=== PATIENT | female | born 2000 | race Caucasian/White ===

== ENCOUNTER 2020-03-01 11:21 | Outpatient (REF) | payer OTHER, SELFPAY | END 2020-03-01 11:22 | disposition home or self-care (01) | LOC: HO.LAB 11:21 | PROVIDERS: Visit Provider Internal Medicine | DX: Z20.828 Contact with and (suspected) exposure to other viral communicable diseases (principal) | CPT/HCPCS: C9803; U0003 ==

== ENCOUNTER 2021-03-02 16:26 | Emergency (ER) | payer OTHER, SELFPAY ==
--- NOTE | ~2021-03-02 | XR_ITS ---
EXAMINATION: XR KNEE, RIGHT CLINICAL INFORMATION: Injury COMPARISON: None TECHNIQUE: Two views of the right knee. FINDINGS: Hardware in the distal femur. No evidence of hardware failure. No acute fracture or dislocation. No significant effusion XR/XR knee RT 2V IMPRESSION: No acute bony finding
[2021-03-02 16:53] VITALS: BP 124/67; PULSE 97; RESP 18; TEMP 36.1; O2SAT 97; BMI 23.8
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
== END 2021-03-02 20:35 | disposition home or self-care (01) ==
PROVIDERS: Emergency Provider Internal Medicine
DX: S39.012A Strain of muscle, fascia and tendon of lower back, initial encounter (principal); S16.1XXA Strain of muscle, fascia and tendon at neck level, initial encounter; M25.561 Pain in right knee; V89.2XXA Person injured in unspecified motor-vehicle accident, traffic, initial encounter; Y93.9 Activity, unspecified; Y92.410 Unspecified street and highway as the place of occurrence of the external cause; Y99.9 Unspecified external cause status
CPT/HCPCS: 73560; 99283

== ENCOUNTER 2021-03-03 13:19 | Outpatient (REF) | payer OTHER, SELFPAY ==
[2021-03-03 14:02] LABS: COVID-19 Test Positive (Negative)
== END 2021-03-03 13:20 | disposition home or self-care (01) ==
LOC: HO.LAB 13:19
PROVIDERS: Visit Provider Internal Medicine
DX: Z20.822 Contact with and (suspected) exposure to COVID-19 (principal)
CPT/HCPCS: 36415; 87635; C9803

== ENCOUNTER 2023-09-19 19:34 | Emergency (ER) | payer SELFPAY ==
[2023-09-19 19:59] VITALS: BP 113/70; PULSE 99; RESP 18; TEMP 36.7; O2SAT 98; BMI 27.4
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
[2023-09-19 22:35] VITALS: BP 113/70; PULSE 92; RESP 16; TEMP 36.8; O2SAT 98
--- OUTSIDE RECORDS SUMMARY | 2023-09-20 08:37 | XMS_ITS | Continuity of Care Document ---
Author Organization [facility] ter Address [address] [place] [id number]- Care Team Providers Care Wheelabrator Operator Name Role Phone Tricia Slade MD Primary Care Physician [phone] Encounter [facility] Date(s): 02/24/21 - 05/06/[address] [id number] Attending Physician: Татьяна Lu MD Admitting Physician: Татьяна Lu MD Allergies, Adverse Reactions, Alerts No Known Allergies Immunizations Not Given Vaccine Date Status Refusal Reason influenza virus vaccine, inactivated 03/30/19 Not Given Patient Refuses Medications Colace sodium 100 mg oral capsule 200 mg, 2, capsule, By Mouth, 2 times a day, Refills 0, Maintenance, 03/31/19 16:25:00 EST Start Date: 03/31/19 Status: Ordered Enoxaparin 0.4 mL = 40 mg, Subcutaneous Injection, Daily, 0 Refills, Maintenance, 03/31/19 16:25:00 EST, Injection Start Date: 03/31/19 Status: Ordered ibuprofen 600 mg oral tablet 600 mg, 1, tablet, By Mouth, 3 times a day, PRN, Refills 0, Maintenance, Pain , Mild, 03/31/19 16:25:00 EST Start Date: 03/31/19 Status: Ordered Milk of Magnesia Liquid 30 mL, By Mouth, 2 times a day, PRN Constipation, 0 Refills, Maintenance, 03/31/19 16:25:00 EST, Suspension Start Date: 03/31/19 Status: Ordered Multivitamin Tablet 1 tablet, By Mouth, Daily, 0 Refills, Maintenance, 03/31/19 16:25:00 EST, Tablet Start Date: 03/31/19 Status: Ordered oxyCODONE 5 mg oral tablet 10 mg, 2, tablet, By Mouth, Every 3 hours, PRN, Refills 0, Tot. Refills 0, Maintenance, Pain , Severe, 03/31/19 16:25:00 EST, Partial fill upon patient request Start Date: 03/31/19 Status: Ordered Tylenol 325 mg oral tablet 975 mg, 3, tablet, By Mouth, 3 times a day, Refills 0, Maintenance, 03/31/19 16:24:00 EST Start Date: 03/31/19 Status: Ordered
--- OUTSIDE RECORDS SUMMARY | 2023-09-20 08:37 | XMS_ITS | Continuity of Care Document ---
Author Organization [facility] ter Address [address] [place] [id number]- Care Team Providers Care Chief Service Dispatcher Name Role Phone Tricia Slade MD Primary Care Physician En[place] [facility] Date(s): 05/27/21 - 05/27/[address] [address] Discharge Disposition: A-D/C Home Attending Physician: Татьяна Lu MD Admitting Physician: Татьяна Lu MD Referring Physician: Татьяна Lu MD Allergies, Adverse Reactions, Alerts No Known Allergies Immunizations Not Given Vaccine Date Status Refusal Reason influenza virus vaccine, inactivated 03/30/19 Not Given Patient Refuses Medications FENTanyl Inj 25 mcg, Injection, IV Push Slowly, Every 5 minutes for 8 doses/times, in PACU ONLY, Hold for: RR less than 8 or over-sedation, PRN for Pain , Moderate, Repeat until Pain Score is less than or equal to 2, Routine, 05/27/21 8:56:00 EST, Stop date Limite... Start Date: 05/27/21 Stop Date: 05/27/21 Status: Discontinued oxyCODONE 5 mg oral tablet 5 mg, 1, tablet, By Mouth, Every 6 hours, PRN, # 18 tablet, Refills 0, Tot. Refills 0, Acute 06/01/21 9:37:00 EST, for pain, 05/27/21 9:36:00 EST, Route to Pharmacy Electronically, [facility], Partial fill upon patient request if the pre... Start Date: 05/27/21 Stop Date: 06/01/21 Status: Ordered Vital Signs Most recent to oldest [Reference Range]: 1 2 3 Height 157.48 cm (05/27/21 6:56 AM) 157.48 cm (05/17/21 9:13 AM) Weight 60.9 kg (05/27/21 6:56 AM) 54.55 kg (05/17/21 9:13 AM) Oxygen Saturation [94-100 %] 100 % (05/27/21 10:00 AM) 99 % (05/27/21 9:45 AM) 100 % (05/27/21 9:30 AM) Pulse Rate [55-90 bpm] 81 bpm (05/27/21 6:56 AM) Body Mass Index [18.5-24.99] 24.56 (05/27/21 6:56 AM) 22 (05/17/21 9:13 AM) Blood Pressure [90-138/55-84 mm Hg] 121/60mm Hg (05/27/21 10:00 AM) 111/59mm Hg (05/27/21 9:45 AM) 106/65mm Hg (05/27/21 9:30 AM) Respiratory Rate [16-30 br/min] 20 br/min (05/27/21 10:06 AM) 20 br/min (05/27/21 10:00 AM) 19 br/min (05/27/21 9:48 AM) Temperature [96.8-100.4 DegF] 100.0 DegF (05/27/21 10:00 AM) 97.6 DegF (05/27/21 8:45 AM) 98.3 DegF (05/27/21 6:56 AM) Mode of Delivery (Oxygen) Room air (05/27/21 10:00 AM) Room air (05/27/21 8:45 AM) Room air (05/27/21 6:56 AM) Blood pressure sites Arm, right (05/27/21 6:56 AM) Temperature Route Temporal (05/27/21 10:00 AM) Temporal (05/27/21 8:45 AM) Temporal (05/27/21 6:56 AM) Dry Weight 60.9 kg (05/27/21 6:56 AM) 54.55 kg (05/17/21 9:13 AM) Weight Obtained Via Standing scale (05/27/21 6:56 AM) Patient/family stated (05/17/21 9:13 AM) Dry Weight Obtained Via Standing scale (05/27/21 6:56 AM) Patient/family stated (05/17/21 9:13 AM)
== END 2023-09-19 22:37 | disposition home or self-care (01) ==
PROVIDERS: Emergency Provider Emergency Medicine
DX: L55.9 Sunburn, unspecified (principal)
CPT/HCPCS: 99282; 99283

== ENCOUNTER 2024-05-26 15:06 | Emergency (ER) | payer OTHER, SELFPAY ==
[2024-05-26 15:11] VITALS: BP 136/106; PULSE 84; RESP 16; TEMP 36.6; O2SAT 97; BMI 24.7
--- NOTE | 2024-05-26 15:11 | ED_ITS ---
HPI - General Adult General Chief complaint: Psychiatric Symptoms Stated complaint: checking in Crisis Time Seen by Provider: 05/26/24 15:45 Source: patient Mode of arrival: ambulatory Limitations: no limitations History of Present Illness HPI narrative: 23-year-old female presents emergency department complaining of SI in the setting of alcohol abuse she denies any falls or injuries she was seen here been hospitalized in the past she does have a plan to kill herself but will not elaborate she states she has had thoughts she did recently lose her father and she lost her mother several years ago. Related Data Allergies Allergy/AdvReac Type Severity Reaction Status Date / Time No Known Allergies Allergy Verified 05/26/24 15:16 [No Known Allergies*] Review of Systems 2 Review of Systems: Review of systems: General: Patient denies any fever chills recent illness or falls Musculoskeletal: Denies back pain or body aches or other injuries HEENT: denies headache, runny nose, ear pain Respiratory: denies shortness of breath, cough Cardiovascular: no chest pain or palpitations : denies dysuria, frequency Abdomen: no nausea vomiting denies abdominal pain Extremities: no swelling, no pain Skin: no diaphoresis Yes all other systems are reviewed and are negative PMFSH Social History Social History Alcohol intake: current Alcohol intake frequency: 3 or more drinks per day Smoked in Last 30 Days: Yes Use of substances other than those prescribed or required for medical reasons: No Advance Directives: No Advance Directives Information Provided: Yes Physical Exam ED Vital Signs: Vital Signs - 24 hr 05/26/24 15:11 05/26/24 16:33 05/26/24 18:12 Temperature 97.9 F 99.5 F Pulse Rate 84 70 Respiratory Rate 16 18 16 Blood Pressure 136/106 H 110/66 Pulse Oximetry 97 98 Oxygen Delivery Method Room Air Room Air 05/27/24 06:25 Temperature 97.6 F Pulse Rate 55 Respiratory Rate 16 Blood Pressure 107/48 L Pulse Oximetry 98 Oxygen Delivery Method Room Air BMI result Body Mass Index 24.7 General: Well-appearing well-nourished in no signs of distress HEENT: Normocephalic atraumatic Neck: No signs of JVD, no masses no tenderness or lymphadenopathy Cardiovascular: Regular rate and rhythm Respiratory: Clear to auscultation bilaterally Abdomen: Soft nontender no masses rectal exam performed guiac negative quality assurance engineer confirmed. Extremities: Normal pedal pulses no signs of edema Skin: Dry warm no rashes Back: No tenderness full ROM Course Course Course Narrative: RME performed by Nataliya Rodriguez PA-C. Patient is a 23 year old assigned female at presenting to the emergency department with depression, suicidal ideation, and alcohol abuse. Patient states she has been drinking a sleeve of nips per day and has been more depressed causing suicidal ideation. Detailed physical exam and review of systems are deferred to the boat finisher. green hide inspector made aware of patient. Reevaluation(s) Reevaluation #1: Seen by and they will send for respite. She will stay overnight for placement in the morning. Time: 18:39 Reevaluation #2: No issues overnight vital signs stable plan is respite today Time: 07:05 Reevaluation #3: Patient was accepted to respite we will discharge her Medical Decision Making Medical Decision Making [facility] Narrative: I will send those the patient denies ever being hospitalized like this in the past she did recently lose her father after losing mother does admit to alcohol abuse Differential Diagnosis Differential Diagnoses: The differential diagnosis associated with the presentation includes SI HI she had psychosis Consult Healthcare Provider Management of the patient was discussed with: Behavioral Health Provider Lab Data [facility] Lab Attestation statement: I reviewed the patient's lab results. She is positive for cocaine and marijuana use 05/26/24 15:20 05/26/24 15:20 Labs: Lab Results 05/26/24 05/26/24 Range/Units 15:20 15:55 WBC 12.2 H (4.8-10.8) X10*3/uL RBC 4.96 (4.20-5.50) X10*6/uL Hgb 14.7 (12.0-16.0) g/dl Hct 43.0 (37.0-47.0) % MCV 86.7 (80.0-98.0) fL MCH 29.6 (27.0-33.0) pg MCHC 34.2 (31.0-35.0) g/dl RDW 13.3 (11.0-16.0) % Plt Count 375 (160-400) X10*3/uL MPV 10.4 (9.4-12.3) fL Immature Gran % (Auto) 0.4 (0.0-0.4) % Neut % (Auto) 70.6 (45-73) % Lymph % (Auto) 20.2 (20-40) % [place] % (Auto) 6.8 (2-11) % Eos % (Auto) 1.6 (0-4) % Baso % (Auto) 0.4 (0-2) % Lymph # (Auto) 2.5 (1.2-4.9) X10*3/uL [place] # (Auto) 0.8 (0.1-1.2) X10*3/uL Eos # (Auto) 0.2 (0.0-0.4) X10*3/uL Baso # (Auto) 0.1 (0.0-0.2) X10*3/uL Abs Immat Gran (auto) 0.05 H (0.00-0.03) X10*3/uL Absolute Neuts (auto) 8.6 H (2.0-8.3) x10*3/uL Absolute Nucleated RBC 0.000 (0.0-0.012) X10*3/uL Nucleated RBC % (auto) 0.0 (0.0-0.2) /100WBC Sodium 140 (135-145) mmol/L Potassium 3.5 (3.3-5.1) mmol/L Chloride 105 (96-108) mmol/L Carbon Dioxide 24 (22-29) mmol/L Anion Gap 15 (12-20) BUN 8 L (9-16) mg/dL Creatinine 0.82 (0.5-1.4) mg/dL Estim Creat Clear Calc 90.3 Estimated GFR > 60 Random Glucose 93 (60-115) mg/dL Calcium 9.8 (8.4-10.2) mg/dL Total Bilirubin 1.0 (0.0-1.0) mg/dL AST 17 (5-31) U/L ALT 9 (0-31) U/L Alkaline Phosphatase 100 (39-117) U/L Total Protein 8.6 H (6.5-8.0) g/dL Albumin 4.5 (3.5-5.0) g/dL Urine Color Dark Yellow Urine Appearance Cloudy Urine pH 6.0 (5.0-9.0) Ur Specific [place] 1.025 (1.005-1.025) Urine Protein Trace (Neg-Trace) mg/dL Urine Glucose (UA) Negative (Negative) mg/dL Urine Ketones Trace (Negative) mg/dL Urine Blood Large (3+) H (Negative) Urine Nitrite Negative (Negative) Ur Leukocyte Esterase Trace H (Negative) Urine RBC 6-10 H (0-2) /HPF Urine WBC 6-10 H (0-5) /HPF Ur Squamous Epith Cells 11-20 (0-2) /HPF Urine Bacteria 4+ (None Seen) Hyaline Casts 3-5 (0-2) /LPF Urine Test NEGATIVE (NEGATIVE) Salicylates < 5.0 L (15-30) mg/dL Urine Opiates Screen Not Detected (Not Detect) Ur Buprenorphine Scrn Not Detected (Not Detect) ng/mL Ur Oxycodone Screen Not Detected (Not Detect) ng/mL Urine Methadone Screen Not Detected (Not Detect) ng/mL Urine Fentanyl Screen Not Detected (Not Detect) Acetaminophen < 3 (<30) mcg/mL Ur Barbiturates Screen Not Detected (Not Detect) Ur Phencyclidine Scrn Not Detected (Not Detect) Ur Amphetamines Screen Not Detected (Not Detect) U Benzodiazepines Scrn Not Detected (Not Detect) Urine Cocaine Screen POSITIVE H (Not Detect) U Marijuana (THC) Screen POSITIVE H (Not Detect) Ethyl Alcohol < 10 mg/dL COVID-19 (JEZ) Negative (Negative) COVID-19 Clin Com See Note Discharge Plan Discharge Clinical Impression: Suicidal ideation, Alcohol abuse, Cocaine abuse, Marijuana smoker Patient Disposition: Home, Self-Care Instructions: Depression (DC) Interventions: [place]-Suicide Risk Severity Scale Last Done: 05/26/24 16:34 Print Language: Spanish
[2024-05-26 15:25] LABS: MANUAL DIFF FLAG NO
[2024-05-26 15:26] LABS: Basophils Absolute Auto 0.1 X10*3/uL (0.0-0.2); Basophils Percent Auto 0.4 % (0-2); Eosinophils Absolute Auto 0.2 X10*3/uL (0.0-0.4); Eosinophils Percent Auto 1.6 % (0-4); Hemoglobin 14.7 g/dl (12.0-16.0); Imm Gran Abs Auto 0.05 X10*3/uL (0.00-0.03); Imm Gran Pct Auto 0.4 % (0.0-0.4); Lymphocytes Absolute Auto 2.5 X10*3/uL (1.2-4.9); Lymphocytes Percent Auto 20.2 % (20-40); Mean Corpuscular HGB Conc 34.2 g/dl (31.0-35.0); Mean Corpuscular Hemoglobin 29.6 pg (27.0-33.0); Mean Corpuscular Volume 86.7 fL (80.0-98.0); Mean Platelet Volume 10.4 fL (9.4-12.3); Monocytes Absolute Auto 0.8 X10*3/uL (0.1-1.2); Monocytes Percent Auto 6.8 % (2-11); Neutrophils Absolute Auto 8.6 x10*3/uL (2.0-8.3); Neutrophils Percent Auto 70.6 % (45-73); Platelet Count 375 X10*3/uL (160-400); Red Blood Count 4.96 X10*6/uL (4.20-5.50); Red Cell Distribution Width 13.3 % (11.0-16.0); White Blood Count 12.2 X10*3/uL (4.8-10.8)
[2024-05-26 15:38] LABS: COVID-19 Test Negative (Negative); IDNOW Serial# 55D5AD1C
[2024-05-26 15:56] LABS: Acetaminophen LAB < 3 mcg/mL (<30); Salicylate < 5.0 mg/dL (15-30)
[2024-05-26 16:03] LABS: Alanine Aminotransferase 9 U/L (0-31); Albumin Level 4.5 g/dL (3.5-5.0); Alkaline Phosphatase 100 U/L (39-117); Anion Gap 15 (12-20); Aspartate Amino Transferase 17 U/L (5-31); Blood Urea Nitrogen 8 mg/dL (9-16); Calcium 9.8 mg/dL (8.4-10.2); Carbon Dioxide 24 mmol/L (22-29); Chloride 105 mmol/L (96-108); Creatinine Clr Calc Pharmacy 90.3; Estimated Glomerular Filt Rate > 60; Ethanol < 10 mg/dL; Glucose Random 93 mg/dL (60-115); Potassium 3.5 mmol/L (3.3-5.1); Sodium 140 mmol/L (135-145); Total Protein 8.6 g/dL (6.5-8.0)
[2024-05-26 16:25] LABS: Appearance Urine Cloudy; Color Urine Dark Yellow; Glucose Urine UA Negative (Negative); Leukocyte Esterase Urine Trace (Negative); Nitrite Urine Negative (Negative); Specific Gravity - Urine 1.025 (1.005-1.025); UMIC TRIGGER UA YES; UPreg QC Valid YES; Urine Blood Large (3+) (Negative); Urine Ketones Trace mg/dL (Negative); Urine Pregnancy NEGATIVE (NEGATIVE); Urine Protein Trace mg/dL (Neg-Trace)
[2024-05-26 16:33] VITALS: RESP 18
[2024-05-26 16:34] LABS: Amphetamine Screen Urine Not Detected (Not Detect); Barbiturates, Urine Not Detected (Not Detect); Benzodiazepines Screen Urine Not Detected (Not Detect); Buprenorphine Scr Not Detected (Not Detect); Cannabinoid Screen Urine POSITIVE (Not Detect); Cocaine Screen Urine POSITIVE (Not Detect); Fentanyl, urine Not Detected (Not Detect); Methadone Screen, Urine Not Detected (Not Detect); Opiate Screen Urine Not Detected (Not Detect); Oxycodone Screen Urine Not Detected (Not Detect); Phencyclidine Screen Urine Not Detected (Not Detect)
[2024-05-26 16:37] LABS: Bacteria Urine 4+ (None Seen)
[2024-05-26 18:12] VITALS: BP 110/66; PULSE 70; RESP 16; TEMP 37.5; O2SAT 98
--- NOTE | 2024-05-26 18:15 | PC.NURSE ---
pt is alert and oriented, skin pwd, no visible tremor at this time, pt denies any symptoms of alcohol withdrawal-last drink was last night around 2229, pt is feeling depressed do to like stresses and some vague SI thoughts
--- OUTSIDE RECORDS SUMMARY | 2024-05-26 18:49 | XMS_ITS | Clinical Summary ---
Author Organization [facility] ity Address [address] [place] [address] Care Team Providers Care Civil Rights Attorney Name Role Phone Unavailable Primary Care Provider Unavailabl e Social History Tobacco Use Types Packs/Day Years Used Date Smoking Tobacco: Never Assessed Comments Unknown Sex and Gender Information Value Date Recorded Sex Assigned at Not on file Legal Sex Female 4:02 PM EST Gender Identity Not on file Sexual Orientation Not on file Plan of Treatment Health Maintenance Due Date Last Done Comments HPV Vaccines (1 - 3-dose series) 2013 DTaP,Tdap,and Td Vaccines (1 - Tdap) 2017 Hepatitis B Vaccines (1 of 3 - 19+ 3-dose series) 2017 Cervical Cancer Screening: P ap Smear 10/28/2019 COVID-19 Vaccine ( - 2023-2 5 season) 2023 Influenza Vaccine (#1) 2023 HIB Vaccines Aged Out No longer eligi ble based on patient's age to complete this topic Hepatitis A Vaccines Aged Out No long er eligible based on patient's age to complete this topic IPV Vaccines Aged Out No longer eligi ble based on patient's age to complete this topic MMR Vaccines Aged Out No longer eligi ble based on patient's age to complete this topic Meningococcal ACWY Vaccine Aged Out N o longer eligible based on patient's age to complete this topic Meningococcal B Vacine Aged Out No lo nger eligible based on patient's age to complete this topic Pneumococcal Vaccine: Pediat rics (0 to 5 Years) and At-Risk Patients (6 to 64 Years) Aged Out No longer eligible b ased on patient's age to complete this topic RSV Immunization Patients Un jaquelin 20 months Aged Out No longer eligible b ased on patient's age to complete this topic Varicella Vaccines Aged Out No longer eligible based on patient's age to complete this topic
--- NOTE | 2024-05-26 20:13 | MHC.CARE ---
Addendum entered by Allison Nazario LCSW 05/26/24 22:20: Pt was accepted to [facility] for 05/27/24 between 9am and 10am. Admissions asks the CARE Team to call [phone] in the morning to confirm when Pt should arrive. Pt is aware that she has been accepted. Pt may be able to have a family member drop her off, however was unsure at this time. CARE team will f/u on mode of transport and reach out to [facility] in the morning. Original Note: Pt was assessed by the CARE team and is an [facility] bedsearch. On a section 12A for safety. Referrals faxed to [facility] who confirm that they were received. No beds at either facility tonight and it is recommended that CARE team follow-up in the morning. [facility]: Number- [phone], fax- [phone].
--- NOTE | 2024-05-26 23:42 | PC.NURSE ---
patient appears to remain at rest presently respirations are even and unlabored patient appears in no distress
[2024-05-27 06:25] VITALS: BP 107/48; PULSE 55; RESP 16; TEMP 36.4; O2SAT 98
[2024-05-27 08:59] VITALS: BP 107/48; PULSE 55; RESP 16; TEMP 36.4; O2SAT 98
--- NOTE | 2024-05-27 09:06 | PC.NURSE ---
pt provided w/ personal transportation to respite via family member. pt being d/c'd from facility at this time.
== END 2024-05-27 09:10 | disposition home or self-care (01) ==
PROVIDERS: Physician Assistant Medical; Emergency Provider Student in an Organized Health Care Education/Training Program
DX: R45.851 Suicidal ideations (principal); F32.A Depression, unspecified; F10.10 Alcohol abuse, uncomplicated; F14.10 Cocaine abuse, uncomplicated; F12.90 Cannabis use, unspecified, uncomplicated
CPT/HCPCS: 80053; 80143; 80179; 80307; 81001; 81025; 85025; 87635; 99284; 99285; S9485

== ENCOUNTER 2024-11-30 14:21 | Emergency (ER) | payer MEDICAID, SELFPAY ==
[2024-11-30 14:27] VITALS: BP 121/61; PULSE 108; RESP 18; TEMP 36.7; O2SAT 95; BMI 28.7
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
--- OUTSIDE RECORDS SUMMARY | 2024-11-30 14:38 | XMS_ITS | Clinical Summary ---
Author Organization [facility] ity Address [address] [place] [address] Care Team Providers Care Magnetic Tester Name Role Phone Unavailable Primary Care Provider [...] Vaccine ( - 2023-2 5 season) 2023 Depression Screening 03/26/2024 Influenza Vaccine (#1) 2024 HIB Vaccines Aged Out No longer eligi [...] age to complete this topic Meningococcal B Vaccine Aged Out No l onger eligible based on patient's age to complete this topic Pneumococcal Vaccine: Pediat rics (0 to 5 Years) and At-Risk Patients (6 to 49 Years) Aged Out No longer eligible b ased on patient's age to complete this topic RSV Immunization Patients Un jaquelin 20 months Aged Out No longer eligible b ased on patient's age to complete this topic Varicella Vaccines Aged Out No longer eligible based on patient's age to complete this topic
[2024-11-30] MEDS: Silver Sulfadiazine 1 % Cream 20 GM TUBE 1 APPL TOPICAL (14:42)
[2024-11-30] MEDS: Diphth,Pertus(ACell),Tet Adult 0.5 ML SYRINGE IM (14:42)
[2024-11-30 14:56] VITALS: BP 121/61; PULSE 108; RESP 18; TEMP 36.7; O2SAT 95
== END 2024-11-30 14:56 | disposition home or self-care (01) ==
PROVIDERS: Emergency Provider Student in an Organized Health Care Education/Training Program
DX: T24.201A Burn of second degree of unspecified site of right lower limb, except ankle and foot, initial encounter (principal); Z23 Encounter for immunization; T31.0 Burns involving less than 10% of body surface; V28.09XA Other motorcycle driver injured in noncollision transport accident in nontraffic accident, initial encounter; Y93.9 Activity, unspecified; Y92.410 Unspecified street and highway as the place of occurrence of the external cause; Y99.8 Other external cause status
CPT/HCPCS: 90471; 90715; 99282; 99284

== ENCOUNTER 2024-12-01 10:59 | Emergency (ER) | payer MEDICAID, SELFPAY ==
[2024-12-01 11:17] VITALS: BP 132/58; PULSE 80; RESP 14; TEMP 36.4; O2SAT 98; BMI 28.5
--- NOTE | 2024-12-01 11:17 | ED.GENADULT ---
HPI - General Adult General Chief complaint: Nausea/Vomiting/Diarrhea Stated complaint: abd pain after being given antibiotics t-1 Time Seen by Provider: 12/01/24 11:21 Source: patient Mode of arrival: ambulatory Limitations: no limitations History of Present Illness ED Provider: Nataliya Rodriguez PA-C HPI narrative: Patient is a 24 year old assigned female at with no significant medical history presenting to the emergency department today with nausea and vomiting. Patient states that she was seen for a burn on her right leg and started Cephalexin last night. Patient reports nausea and vomiting started after taking antibiotics. Patient denies any dizziness, lightheadedness, fever, chills, pain with urination, increased urinary frequency, increased urinary urgency, blood in her urine or stool, or any other complaints at this time. Patient states that she was eating some food when taking the antibiotic but not a lot. Patient states that she got a referral to the wound center. Related Data Previous Rx's ?Medication ?Instructions ?Recorded cephalexin 500 mg capsule 500 mg PO QID #28 caps 11/30/24 naproxen 500 mg tablet 500 mg PO BID PRN pain #14 tabs 11/30/24 doxycycline hyclate 100 mg tablet 100 mg PO BID 7 days #14 tabs 12/01/24 ondansetron 4 mg disintegrating 4 mg PO Q8H 3 days #9 tabs 12/01/24 tablet Allergies Allergy/AdvReac Type Severity Reaction Status Date / Time No Known Allergies (No Known Allergy Verified 12/01/24 11:21 Allergies*) Review of Systems Constitutional: Constitutional: Reports as per HPI Eyes: Eyes: Reports as per HPI ENT: Reports as per HPI Cardiovascular: Cardiovascular: Reports as per HPI Respiratory: Respiratory: Reports as per HPI Gastrointestinal: Gastrointestinal: Reports as per HPI Genitourinary: Genitourinary: Reports as per HPI Musculoskeletal: Musculoskeletal: Reports as per HPI Integumentary/Breasts: Skin/Breast: Reports as per HPI Neurologic: Reports as per HPI Psychiatric: Psychiatric: Reports as per HPI Endocrine: Endocrine: Reports as per HPI Hematologic/Lymphatic: Hematologic/Lymphatic: Reports as per HPI Allergic/Immunologic: Allergic/Immunologic: Reports as per HPI [facility] Past Medical History Attestation statement: The following information was validated with the patient. Source: old records reviewed and nursing notes reviewed Social History Social History Alcohol intake: current Alcohol intake frequency: 3 or more drinks per day Advance Directives: No Advance Directives Information Provided: Yes Do you have a plan to hurt others: No Plan Physical Exam ED Vital Signs: Vital Signs - 24 hr 12/01/24 11:17 Temperature 97.6 F Pulse Rate 80 Respiratory Rate 14 Blood Pressure 132/58 L Pulse Oximetry 98 Oxygen Delivery Method Room Air BMI result Body Mass Index 28.5 Const General: cooperative, no acute distress, alert and awake Nutritional Appearance: well nourished Orientation/consciousness: patient oriented x3 HENMT Head: Yes normal to inspection and Yes atraumatic Ears: hearing grossly normal bilaterally and external ears normal General nose exam: Normal external nose present, no nasal discharge noted and no epistaxis Face and sinus: Yes normal facial exam, No abrasion and No laceration Mouth: Normal oral and palatal mucosa present, no drooling and no muffled voice Eyes General: appearance normal, both eyes and all related structures Periorbital: periorbital findings normal Eyelids: Yes eyelids normal Conjunctivae: conjunctivae normal Pupils: Equal, round and reactive pupils present EOM: EOMs intact bilaterally Neck Neck: Yes normal visual inspection and Yes full ROM Resp Effort & Inspection: normal respiratory effort and able to speak in complete sentences Neuro General: patient oriented x3, moves all extremities and CN's II-XI intact bilaterally Cranial nerves: Yes Equal, round and reactive pupils present Cognition (Neuro): normal cognition Extrem Other: burn present to the right lower leg General: Yes full ROM and Yes capillary refill normal Psych Appearance: grossly normal Mental Status: mental status grossly normal Affect: normal affect Attitude: cooperative Thought process: Normal thought process present Thought content: Normal thought content present Insight: Good insight present (Psych) Course Course Course Narrative: Rapid medical examination performed in triage by Nataliya Rodriguez PA-C. Patient is a 24 year old assigned female at presenting to the emergency department with nausea + vomiting after starting keflex for a burn. Detailed physical exam and review of systems are deferred to the technology applications consultant. EKG + labs ordered. Patient placed back in the waiting room pending room availability and results. Medical Decision Making Medical Decision Making MDM Narrative: Patient is a 24 year old assigned female at with no significant medical history presenting to the emergency department today with nausea and vomiting. Patient's physical exam was as noted in the physical exam portion of this note. Patient's blood work was unremarkable. Patient's clinical presentation is most consistent with a right lower leg burn that is healing and an adverse reaction to cephalexin. I explained my physical exam findings as well as all test results to the patient. I answered all questions asked by the patient. Patient requested an antibiotic that was less times than 4x a day because she does not eat that much per day. Patient started on Doxycycline and given PO Zofran. I stressed the importance of the patient taking her medication as directed (either prescribed or as the over the counter packaging recommends). I stressed the importance of the patient following up with her primary care provider and the wound center. I stressed the importance of the patient returning to the emergency department immediately if her symptoms were to worsen or if she were to develop any dizziness, shortness of breath, difficulty breathing, chest pain, blurry vision, loss of vision, nausea, vomiting, abdominal pain, fever, chills, back pain, or any other complaints. Patient verbalized agreement and understanding with this treatment plan and discharge. Differential Diagnosis Differential Diagnoses: The differential diagnosis associated with the presentation includes Medication reaction Adverse reaction to medication Nausea Vomiting Admission/Observation Consideration of admission/observation: Escalation of care including admission/observation considered Patient would have been admitted to the hospital had her work up had any findings where hospital admission was appropriate and her clinical presentation warranted hospital admission. Lab Data [facility] Lab Attestation statement: I reviewed the patient's lab results. My interpretation of these results are in the [facility] Rationale portion of this note. 12/01/24 11:28 12/01/24 11:28 Labs: Lab Results 12/01/24 Range/Units 11:28 WBC 9.7 (4.8-10.8) X10*3/uL RBC 4.47 (4.20-5.50) X10*6/uL Hgb 13.7 (12.0-16.0) g/dl Hct 39.8 (37.0-47.0) % MCV 89.0 (80.0-98.0) fL MCH 30.6 (27.0-33.0) pg MCHC 34.4 (31.0-35.0) g/dl RDW 13.2 (11.0-16.0) % Plt Count 283 (160-400) X10*3/uL MPV 10.0 (9.4-12.3) fL Immature Gran % (Auto) 0.7 H (0.0-0.4) % Neut % (Auto) 71.5 (45-73) % Lymph % (Auto) 18.2 L (20-40) % [place] % (Auto) 6.7 (2-11) % Eos % (Auto) 2.6 (0-4) % Baso % (Auto) 0.3 (0-2) % Lymph # (Auto) 1.8 (1.2-4.9) X10*3/uL [place] # (Auto) 0.7 (0.1-1.2) X10*3/uL Eos # (Auto) 0.3 (0.0-0.4) X10*3/uL Baso # (Auto) 0.0 (0.0-0.2) X10*3/uL Abs Immat Gran (auto) 0.07 H (0.00-0.03) X10*3/uL Absolute Neuts (auto) 7.0 (2.0-8.3) x10*3/uL Absolute Nucleated RBC 0.000 (0.0-0.012) X10*3/uL Nucleated RBC % (auto) 0.0 (0.0-0.2) /100WBC Sodium 140 (135-145) mmol/L Potassium 4.1 (3.3-5.1) mmol/L Chloride 108 (96-108) mmol/L Carbon Dioxide 24 (22-29) mmol/L Anion Gap 12 (12-20) BUN 15 (9-16) mg/dL Creatinine 0.75 (0.5-1.4) mg/dL Estim Creat Clear Calc 100.6 Estimated GFR > 60 Random Glucose 86 (60-115) mg/dL Calcium 9.4 (8.4-10.2) mg/dL Magnesium 2.0 (1.6-2.6) mg/dL Total Bilirubin 0.8 (0.0-1.0) mg/dL AST 20 (5-31) U/L ALT 15 (0-31) U/L Alkaline Phosphatase 89 (39-117) U/L Total Protein 7.6 (6.5-8.0) g/dL Albumin 4.5 (3.5-5.0) g/dL Beta HCG, Quant < 2 mIU/mL Prescription Management I considered prescription management with: Antibiotic (patient prescribed a different antibiotic due to poor reaction with the previously prescribed.) Discharge Plan Discharge Clinical Impression: Nausea & vomiting, Adverse drug reaction, Cellulitis Patient Disposition: Home, Self-Care Instructions: Cellulitis (ED), Acute Nausea and Vomiting (DC) Additional Instructions: Your lab work today and EKG were reassuring there is no EMERGENT process for your symptoms. I'm suspicious your nausea / vomiting are a reaction to the antibiotic you were prescribed. I have prescribed you anti-nausea medication and a different antibiotic. Follow up with the wound center as previously directed. Avoid public bodies of water including lópez, pools, lakes, etc. IF you are prescribed home medications and/or you are taking over the counter medications at home - it is very important you continue to do so as prescribed / directed unless told otherwise. Follow up with a primary care provider. Return to the emergency department immediately if your symptoms worsen or if you develop any numbness, tingling, dizziness, shortness of breath, difficulty breathing, chest pain, blurry vision, loss of vision, nausea, vomiting, abdominal pain, fever, chills, back pain, or any other complaints. If you do not have a primary care provider - call any of the below numbers to establish and follow up with a primary care provider. [facility] [place] Primary Care ([place]) [phone] [place] [address], [address] [facility] [place] Primary Care ([address] [place]) [phone] [place] [address], [address] [facility], [address] [facility] [place] Primary Care ([address] [place]) [phone] [place] [address], [address] [facility], [address] [facility] [place] Primary Care ([place]) [phone] [place] [address] 2 [facility], [address] [facility] [place] Family Medicine [phone] [place] [address], [id number] Please see the information below about our Patient Portal. If you are not yet enrolled in the [facility] Patient Portal, you will receive an enrollment email invitation following your visit to any [facility] [place] [place] care setting. You may also self-enroll in the Patient Portal by visiting our website: [email or web address] The following information is required to access the Patient Portal: - Your [facility] [place] [place] Medical Record Number - Your personal home email address (must match what is in your electronic medical record, Registration staff can assist with this) - Name - Date of Capabilities of the Patient Portal: - Message some providers - View upcoming appointments - Access your health summary, medical history, and visit history - View current conditions and allergies - View procedure and lab results - View your medications, including guidelines, side effects, and precautions - Complete pre-appointment questionnaires requested by your provider - Ready summary reports of your office visits and procedures To access the Patient Portal Mobile Doris, follow these directions: - Search [employer] in the Doris Store or Resermap Store - Download the Doris - Search for [facility] - Enter your login/password Prescriptions: New ondansetron 4 mg tablet,disintegrating 4 mg PO Q8H 3 Days Qty: 9 0RF doxycycline hyclate 100 mg tablet 100 mg PO BID 7 Days Qty: 14 0RF No Action cephalexin 500 mg capsule 500 mg PO QID Qty: 28 0RF naproxen 500 mg tablet 500 mg PO BID PRN (Reason: pain) Qty: 14 0RF Discharge Date/Time: 12/01/24 12:39 Print Language: Bengali
--- NOTE | 2024-12-01 11:20 | ECG_ITS ---
Test Reason : QTC EVAL Blood Pressure : */* mmHG Vent. Rate : 78 BPM Atrial Rate : 78 BPM P-R Int : 126 ms QRS Dur : 62 ms QT Int : 348 ms P-R-T Axes : 6 60 16 degrees QTcB Int : 396 ms Normal sinus rhythm with sinus arrhythmia Normal ECG No previous ECGs available Referred By: Nataliya Rodriguez Electronically Signed By: KRYSTYNA STOUT MD
[2024-12-01 11:34] LABS: MANUAL DIFF FLAG NO
[2024-12-01 11:37] LABS: Hematocrit 39.8 % (37.0-47.0); Hemoglobin 13.7 g/dl (12.0-16.0); Imm Gran Abs Auto 0.07 X10*3/uL (0.00-0.03); Imm Gran Pct Auto 0.7 % (0.0-0.4); Lymphocytes Absolute Auto 1.8 X10*3/uL (1.2-4.9); Mean Corpuscular HGB Conc 34.4 g/dl (31.0-35.0); Mean Corpuscular Hemoglobin 30.6 pg (27.0-33.0); Mean Corpuscular Volume 89.0 fL (80.0-98.0); NRBC Abs Auto 0.000 X10*3/uL (0.0-0.012); NRBC Pct Auto 0.0 /100WBC (0.0-0.2); Platelet Count 283 X10*3/uL (160-400); Red Blood Count 4.47 X10*6/uL (4.20-5.50); White Blood Count 9.7 X10*3/uL (4.8-10.8)
[2024-12-01 11:52] LABS: Alanine Aminotransferase 15 U/L (0-31); Albumin Level 4.5 g/dL (3.5-5.0); Alkaline Phosphatase 89 U/L (39-117); Anion Gap 12 (12-20); Aspartate Amino Transferase 20 U/L (5-31); Blood Urea Nitrogen 15 mg/dL (9-16); Calcium 9.4 mg/dL (8.4-10.2); Carbon Dioxide 24 mmol/L (22-29); Chloride 108 mmol/L (96-108); Creatinine Clr Calc Pharmacy 100.6; Estimated Glomerular Filt Rate > 60; Magnesium 2.0 mg/dL (1.6-2.6); Potassium 4.1 mmol/L (3.3-5.1); Sodium 140 mmol/L (135-145); Total Protein 7.6 g/dL (6.5-8.0)
--- OUTSIDE RECORDS SUMMARY | 2024-12-01 14:34 | XMS_ITS | Clinical Summary ---
Author Organization [facility] ity Address [address] [place] [address] Care Team Providers Care Compliance Monitor Name Role Phone Unavailable Primary Care Provider [...]
== END 2024-12-01 12:39 | disposition home or self-care (01) ==
PROVIDERS: Physician Assistant Medical; Emergency Provider Emergency Medicine
DX: R11.2 Nausea with vomiting, unspecified (principal); L03.115 Cellulitis of right lower limb; T36.1X5A Adverse effect of cephalosporins and other beta-lactam antibiotics, initial encounter; Y92.9 Unspecified place or not applicable
CPT/HCPCS: 36415; 80053; 83735; 84702; 85025; 93005; 99283

== ENCOUNTER → 2024-12-01 11:20 | Outpatient (BNV) | payer MEDICAID, SELFPAY | PROVIDERS: Emergency Provider Emergency Medicine; Visit Provider Internal Medicine Cardiovascular Disease | DX: Z13.6 Encounter for screening for cardiovascular disorders (principal) | CPT/HCPCS: 93010 ==

== ENCOUNTER → 2024-12-23 13:32 | Outpatient (BNVA) | payer SELFPAY | PROVIDERS: Visit Provider Registered Nurse | DX: Z02.79 Encounter for issue of other medical certificate (principal) ==

== ENCOUNTER 2024-12-31 10:14 | Emergency (ER) | payer MEDICAID, SELFPAY ==
--- NOTE | ~2024-12-31 | XR_ITS ---
EXAMINATION: XR SACRUM COCCYX 2 OR MORE VIEWS HISTORY: pain, unknown injury COMPARISON: There are no prior studies available for comparison. FINDINGS: Three views of the sacrum and coccyx are submitted. Osseous mineralization is normal. No fracture or lytic lesion is identified. XR/XR sacrum coccyx min 2V IMPRESSION: Unremarkable examination of the sacrum and coccyx. Electronically signed by: Kevin Ogden MD 12/31/2024 11:11 AM EDT
--- NOTE | ~2024-12-31 | XR_ITS ---
EXAMINATION: XR SHOULDER 2 OR MORE VIEWS LEFT HISTORY: fall, ecchymosis COMPARISON: There are no prior studies available for comparison. FINDINGS: Four views of the left shoulder are submitted. Osseous mineralization is normal. There is no fracture or dislocation. The glenohumeral and acromioclavicular joint spaces are preserved. The soft tissues are unremarkable. XR/XR shoulder LT min 2V IMPRESSION: Unremarkable examination of the left shoulder. Electronically signed by: Kevin Ogden MD 12/31/2024 11:08 AM EDT
--- NOTE | ~2024-12-31 | XR_ITS ---
EXAMINATION: XR LUMBAR SPINE 2-3 VIEWS HISTORY: pain COMPARISON: There are no prior studies for comparison. FINDINGS: AP, lateral, and coned down views of the lumbar spine are submitted. Osseous mineralization is normal. There is mild/moderate levoscoliosis. Five nonrib-bearing lumbar vertebral bodies are identified, maintaining normal height without evidence of fracture or spondylolisthesis. The intervertebral disc spaces are preserved. The posterior elements are intact. The visualized paraspinal soft tissues are unremarkable. XR/XR lumbar spine 2-3V IMPRESSION: Mild to moderate levoscoliosis. Otherwise unremarkable examination of the lumbar spine. Electronically signed by: Kevin Ogden MD 12/31/2024 11:10 AM EDT
[2024-12-31 10:35] VITALS: BP 123/59; PULSE 99; RESP 16; TEMP 36.7; O2SAT 100; BMI 27.5
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
[2024-12-31 11:39] VITALS: BP 123/59; PULSE 99; RESP 16; TEMP 36.7; O2SAT 100
== END 2024-12-31 11:39 | disposition home or self-care (01) ==
PROVIDERS: Emergency Provider Emergency Medicine
DX: S40.012A Contusion of left shoulder, initial encounter (principal); S30.0XXA Contusion of lower back and pelvis, initial encounter; X58.XXXA Exposure to other specified factors, initial encounter; Y93.9 Activity, unspecified; Y92.9 Unspecified place or not applicable; Y99.9 Unspecified external cause status
CPT/HCPCS: 72100; 72220; 73030; 99282; 99283

== ENCOUNTER → 2024-12-31 10:37 | Outpatient (BNV) | payer MEDICAID, SELFPAY | PROVIDERS: Emergency Provider Emergency Medicine; Visit Provider Radiology Diagnostic Radiology | DX: M54.50 Low back pain, unspecified (principal); M25.512 Pain in left shoulder; M54.18 Radiculopathy, sacral and sacrococcygeal region | CPT/HCPCS: 72100; 72220; 73030 ==

== ENCOUNTER 2025-01-11 11:53 | Emergency (ER) | payer OTHER, SELFPAY ==
[2025-01-11 12:03] VITALS: BP 122/71; PULSE 109; RESP 16; TEMP 36.1; O2SAT 98; BMI 28.7
--- NOTE | 2025-01-11 12:03 | ED.GENADULT ---
HPI - General Adult General Chief complaint: General Medical Stated complaint: Tailbone injury, spasms Time Seen by Provider: 01/11/25 16:08 History of Present Illness ED Provider: Dr. Asif [facility] narrative: 24-year-old female presented hospital today for evaluation of coccygeal pain. Patient stated this started couple of weeks ago she had a fall. She fell down a flight of stair. She had x-ray performed which was negative. She stated that this pain has been persistent she has been trying to take some ibuprofen. However this pain is persistent. She is also complaining of spasm from her coccygeal pain and she feels she urinary urgency. I denies any dysuria denies any vaginal discharge denies any vaginal bleeding. Related Data Previous Rx's ?Medication ?Instructions ?Recorded cephalexin 500 mg capsule 500 mg PO QID #28 caps 11/30/24 naproxen 500 mg tablet 500 mg PO BID PRN pain #14 tabs 11/30/24 doxycycline hyclate 100 mg tablet 100 mg PO BID 7 days #14 tabs 12/01/24 ondansetron 4 mg disintegrating 4 mg PO Q8H 3 days #9 tabs 12/01/24 tablet cyclobenzaprine 5 mg tablet 5 mg PO TID PRN muscle spasm #10 12/31/24 tabs lidocaine 5 % topical patch 1 patch topical DAILY #15 ea 12/31/24 prednisone 20 mg tablet 20 mg PO DAILY #5 tabs 12/31/24 acetaminophen 500 mg tablet 1,000 mg (2 x 500 mg) PO Q8H 10 01/11/25 days #60 tabs cephalexin 500 mg capsule 500 mg PO Q8H 7 days #21 caps 01/11/25 cyclobenzaprine 5 mg tablet 5 mg PO TID PRN muscle spasm #14 01/11/25 tabs naproxen 250 mg tablet 250 mg PO BID 7 days #14 tabs 01/11/25 Allergies Allergy/AdvReac Type Severity Reaction Status Date / Time No Known Allergies (No Known Allergy Verified 01/11/25 12:05 Allergies*) Review of Systems Review of Systems: Pertinent review of systems as mentioned in HPI. All other system otherwise negative. [facility] Past Medical History [facility] Narrative: None Social History Social History Alcohol intake: current Alcohol intake frequency: 3 or more drinks per day Smoked in Last 30 Days: Yes Use of substances other than those prescribed or required for medical reasons: Yes Advance Directives: No Advance Directives Information Provided: Yes Do you have a plan to hurt others: No Plan Physical Exam ED Exam Exam: General: Pleasant, no distress, interacting appropriately Head: Normacephalic, atraumatic ENT: oral mucosa moist, neck supple, no tracheal deviation Gastrointestinal: Soft, non distended, non tender, non guarding Extremities: No limb pain or swelling, no calf tenderness, coccyx pain on palpation Neurological: Awake and alert, no facial droop noted Skin: Warm and dry Psychiatric: Appropriate mood and thoughts Vital Signs: Vital Signs - 24 hr 01/11/25 12:03 Temperature 97.0 F Pulse Rate 109 H Respiratory Rate 16 Blood Pressure 122/71 Pulse Oximetry 98 Oxygen Delivery Method Room Air BMI result Body Mass Index 28.7 Course Course Course Narrative: This is a rapid medical exam performed by Marilee Bojorquez NP: Additional HPI, ROS, PE not included below will be deferred to primary provider. Patient is a 24y/o F presenting with complaint of muscle spasms to lower back/tailbone area. Seen here 12/31 after a fall. States pain/spasms have persisted since then. Imaging from 12/31 without acute fracture. States she has almost but not fully urinated herself due to spasms. Plan: UA Medical Decision Making Medical Decision Making [place] Narrative: 24-year-old female presented hospital today for a coccygeal pain and urinary urgency. The patient states she does not have primary care doctor establishment. We will plan to give patient a dose of naproxen here lidocaine patch Flexeril. Patient's UA does show signs of UTI. We will plan to give her dose of Keflex here. I did review patient's x-ray independently. I do not see any signs of fracture. I suspect this is acute contusion. We will plan to discharge patient with a course of Keflex and Flexeril to take. She does have lidocaine patch at home from previous visit. We will also prescribe some naproxen and Tylenol for the patient to take as well. Referral to primary care doctor will be provided the patient. She has no red flag symptoms for cauda equina. Denies any bowel incontinence paresthesia urinary retention. Differential Diagnosis Differential Diagnoses: The differential diagnosis associated with the presentation includes UTI, fracture, contusion Lab Data MDM Lab Attestation statement: I reviewed the patient's lab results. Labs: Lab Results 01/11/25 Range/Units 15:44 Urine Color Yellow Urine Appearance Clear Urine pH 7.0 (5.0-9.0) Ur Specific [place] 1.020 (1.005-1.025) Urine Protein Negative (Neg-Trace) mg/dL Urine Glucose (UA) Negative (Negative) mg/dL Urine Ketones Negative (Negative) mg/dL Urine Blood Negative (Negative) Urine Nitrite Negative (Negative) Ur Leukocyte Esterase Small (1+) H (Negative) Urine RBC 0-2 (0-2) /HPF Urine WBC 0-5 (0-5) /HPF Ur Squamous Epith Cells 11-20 (0-2) /HPF Urine Bacteria 2+ (None Seen) Hyaline Casts 0-2 (0-2) /LPF Urine Test NEGATIVE (NEGATIVE) Independent Interpretation I performed an independent interpretation of an: Plain X-Ray Discharge Plan Discharge Clinical Impression: UTI (urinary tract infection) Qualifiers: Urinary tract infection type: site unspecified Hematuria presence: without hematuria Qualified Code(s): N39.0 - Urinary tract infection, site not specified Coccygeal contusion Qualifiers: Encounter type: initial encounter Qualified Code(s): S30.0XXA - Contusion of lower back and pelvis, initial encounter Patient Disposition: Home, Self-Care Prescriptions: New cephalexin 500 mg capsule 500 mg PO Q8H 7 Days Qty: 21 0RF naproxen 250 mg tablet 250 mg PO BID 7 Days Qty: 14 0RF cyclobenzaprine 5 mg tablet 5 mg PO TID PRN (Reason: muscle spasm) Qty: 14 0RF acetaminophen 500 mg tablet 1,000 mg PO Q8H 10 Days Qty: 60 0RF No Action cephalexin 500 mg capsule 500 mg PO QID Qty: 28 0RF naproxen 500 mg tablet 500 mg PO BID PRN (Reason: pain) Qty: 14 0RF cyclobenzaprine 5 mg tablet 5 mg PO TID PRN (Reason: muscle spasm) Qty: 10 0RF prednisone 20 mg tablet 20 mg PO DAILY Qty: 5 0RF lidocaine 5 % adhesive patch,medicated 1 patch topical DAILY Qty: 15 0RF Rx Instructions: leave on most painful area for up to 12 hrs ondansetron 4 mg tablet,disintegrating 4 mg PO Q8H 3 Days Qty: 9 0RF doxycycline hyclate 100 mg tablet 100 mg PO BID 7 Days Qty: 14 0RF Referrals: [facility] [Provider Group, Internal Medicine] Referral Note: establishment of care Print Language: Yi
--- OUTSIDE RECORDS SUMMARY | 2025-01-11 14:11 | XMS_ITS | Clinical Summary ---
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
--- OUTSIDE RECORDS SUMMARY | 2025-01-11 14:11 | XMS_ITS | Data Portability ---
Author Organization LEIA Barrera s, [address] Address [address] [place] [address] Assessment No assessment recorded. Plan of Treatment Reminders Order Date Submit Date Provider Last Modified By Organization Details Last Modified Time Details Appointments None recorded. Lab rapid strep group A, throat 2021 022 [email or web address], [address] [place] [address], [phone], 16:49:13 rapid flu (A+B) 2021 [email or web address], [address] [place] [address], [phone], 16:49:13 rapid SARS CoV 2 Ag, QL IA, respiratory specimen 2021 [facility], [address] [place] [address], [phone], 16:49:13 Referral None recorded. Procedures None recorded. Surgeries None recorded. Imaging XR, ankle, 3 or more view 2022 023 [facility], [address] [facility], [place], [address], 18:40:26 Medication Orders azithromyci n 250 mg tablet [address] [id number], [address] [place], [place], [phone], 16:46:29 Patient TargetsNo targets recorded. Patient Instructions Encounter Date Encounter Id Patient Instructions Last Modified By Organization Details Last Modified Time 03/24/2022 [id number] sore throat: car e instructions Not available 03/24/2022 16:49:13 Increase fluids Mix 1 teaspoonful of salt in a glass of warm water. Gargle and spit out the salt water mixture one mouthful at a time until the glass is empty. Repeat 4 times daily. Get plenty of rest. Return to clinic if worsens, becomes more concerning or as needed. Go to Emergency Room if you feel you have a life threatening condition. Alternate Tylenol and Motrin every 3 hours for fever/pain. Not available 03/24/2022 16:34:32 09/18/2022 [id number] ankle sprain: care instructions Not available 09/18/2022 17:34:47 learning about rice (rest, ice, compression, and elevation) Not available 09/18/2022 17:19:07 Reason for Referral None Reported. Results Created Date Observation Date Name Description Value Unit Range Abnormal Flag Note LastModifiedBy Organization Detail LastModifiedTime 03/24/20 22 03/24/2022 rapid SARS CoV 2 Ag, QL IA, respi rator y speci men Unknown Analyte Normal =Negat kerry Not Available sandra romero [address], [phone], 03/24/2022 16:14:17 03/24/20 22 03/24/2022 rapid SARS CoV 2 Ag, QL IA, respi rator y speci men Unknown Analyte negati ve Not Available 2099sandra romero [address], [address], 03/24/2022 16:14:17 03/24/20 22 03/24/2022 rapid flu (A+B) Unknown Analyte Normal = Negati ve Not Available sandra [address], [address], 03/24/2022 16:14:11 03/24/20 22 03/24/2022 rapid flu (A+B) Unknown Analyte negati ve Not Available [address] [place] [address], [phone], 03/24/2022 16:14:11 03/24/20 22 03/24/2022 rapid flu (A+B) Unknown Analyte Normal = Negati ve Not Available [address] [place] [address], [phone], 03/24/2022 16:14:11 03/24/20 22 03/24/2022 rapid flu (A+B) Unknown Analyte negati ve Not Available [address] [place] [address], [phone], 03/24/2022 16:14:11 03/24/20 22 03/24/2022 rapid strep group A, throa t Unknown Analyte Normal = Negati ve Not Available [address] [place] [address], [phone], 03/24/2022 16:11:03 03/24/20 22 03/24/2022 rapid strep group A, throa t Unknown Analyte positi ve Not Available [address] [place] [address], [phone], 03/24/2022 16:11:03 09/19/19 23 09/18/2022 XR, ankle , 3 or more view No observ ation record ed. [email or web address] [address] [place], [address], 09/18/2022 19:14:05 Result Notes None recorded. Problems No Known Problems Procedures Surgical History Date Name Laterality Status Provider Name and Address Organization Details Recorded Time procedure on femur completed DONA ALLEN PA - [facility] 03/24/2022 16:14:04 Imaging Results None recorded. Procedure Notes None recorded. Medical Equipment None Reported. Allergies No known drug allergies Medications Name Sig Start Date Stop Date Status Note LastModified by Organization Details LastModified Time azithromycin 250 mg tablet TAKE 2 TABLETS (500 MG) BY ORAL ROUTE ONCE DAILY FOR 1 DAY THEN 1 TABLET (250 MG) BY ORAL ROUTE ONCE DAILY FOR 4 DAYS 09/18 completed Not Available Not Available Not Available oxycodone 5 mg tablet TAKE 1 TABLET BY MOUTH EVERY 6 HOURS NEEDED FOR PAIN 03/24 completed Not Available Not Available Not Available Vitals Date Recorded Body height Body mass index (BMI) Body weight Respiratory rate Body temperature Oxygen saturation Oxygen saturation in Arterial blood by Pulse oximetry Heart rate Systolic And Diastolic Provider Name and Address Organization Details Last Updated DateTime 3 157.48 cm 23.8 kg/m2 43327.0 1 g 16 /min 98.2 [degF] 98 % 98 % 89 /min 114/80 mm[Hg] EVELIA VU PA - [facility] 3 16:49:01 Date Recorded Body height Body mass index (BMI) Body weight Oxygen saturation Oxygen saturation in Arterial blood by Pulse oximetry Heart rate Respiratory rate Body temperature Systolic And Diastolic Provider Name and Address Organization Details Last Updated DateTime 2 157.48 cm 23.8 kg/m2 38921.0 1 g 99 % 99 % 96 /min 20 /min 98 [degF] 118/81 mm[Hg] DONA ALLEN PA - [facility] 2 16:14:58 Social History Question Answer Notes LastModified by [employer] Details LastModified Time Tobacco Smoking Status Former Smoker 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 Marijuana [email or web address] Information not available 03/24/2022 When Did You Quit Smoking? 1-5yearssincel astcigarette [email or web address] Information not available 03/24/2022 Have You Recently Traveled Abroad? No [email or web address] Information not available 03/24/2022 Sex: Unknown Functional Status Question Answer Note LastModified by Organizat ion Details LastModified Time Do you use any illicit or recreational drugs? Yes [email or web address] Information not available 03/24/2022 Do you or have you ever used any other forms of tobacco or nicotine? Yes [email or web address] Information not available 03/24/2022 What is your level of alcohol consumption? Occasional Information not available 03/24/2022 Do you or have you ever used e-cigarettes or vape? Former user of electronic cigarettes Per patient, quit 2-3 weeks ago Information not available 03/24/2022 Mental Status None recorded. Family History Relationship Description Onset Age of this Age Resolved Age Notes LastModified by Organization Details LastModified Time Father No current problems or disability Not available 03/24 16:12:23 Mother No current problems or disability [email or web address] Not available 03/24 16:12:23 Medical History Condition Response Gout N Cancer, liver N Thyroid disorder N Hyperthyroidism N Rheumatoid arthritis N GI bleeding N Irritable bowel syndrome N COPD N Depression N Tinnitus, unspecified ear N Pneumonia N Cancer, uterus N Mental disorder, NOS N Headaches/Migraines N Insomia N Alzheimer's disease N Anxiety Disorder N Obesity N Arthritis N Cancer N Stroke N Alcohol abuse N Liver disease N Allergy Food/Medication N Cancer, bladder N Peripheral artery disease N Oxygen dependence N Fibromyalgia N Atrial fibrillation N Tinnitus, right ear N Kidney Disease N Deep vein thrombosis DVT leg N Migraine N Disorder of circulatory system N Anxiety N Cancer, brain N Disease of pancreas N Cancer, lung N Eating disorder, unspecified N Cancer, colon N Crohn's disease N Cancer, cervical N N Cancer, breast N Cancer, skin N Coagulation defect, unspecified N Cataract N Asthma N Congestive heart failure (CHF) N Substance Abuse N Vertigo N Coronary artery disease N Pulmonary Embolism N Cancer, pancreas N Tobacco use disorder N Disease of lung N Allergic rhinitis N Joint disorder, unspecified N Menopause N Back disorder N Drug dependence, unspecified N Hypothyroidism N Disorder kidney N Sickle Cell Anemia N Cancer, ovarian N Burns's Palsy N Disorder of eye N Cancer, prostate N Allergy Seasonal N Disorder of lymph system N Disorder of urinary system N Drug abuse N Radiculopathy, site unspecified N Myoneural disorder, unspecified N Nervous system disorder N ADHD N High Cholesterol N Post-herpetic neuralgia N Aneurysm, cerebral N Tinnitus, left ear N Prostate hypertrophy, benign N Disorder of skin/subcutaneous N Osteoarthritis N Disorder of ear N Ovarian cysts N Parkinson's disease N Low back pain N Carpal tunnel syndrome N Anemia N Disorder of muscle N Kidney stone N Bipolar affective disorder N Leukemia, unspecified N Diabetes N Disorder involving the immune mechanism N Endocrine disorder N Seizure N Hyperlipidemia N Eczema N Emphysema, unspecified N Lymphoma N Dementia N Diverticulitis N Lupus N Seizure disorder N Reflux/GERD N Sleep Apnea N Cancer, bone N Cardiac arrhythmia, unspecified N Disorder of thyroid N Disorder of bone N Heart Disease N Disorder of brain N Liver Disorder N Aneurysm, aortic N Hypertension N Osteoporosis N Disease of digestive system, unspecified N Gastroesophageal reflux (GERD) N Gynecological History Statement/Question Response Date of LMP 09/17/2022 Obstetrics History GPAL:G 0 P 0 0 0 0 Past Encounters Encounter ID Performer Location Encounter Start Date Encounter Closed Date Diagnosis/Indication Diagnosis SNOMED-CT Code Diagnosis ICD10 Code Diagnosis IMO Codes Diagnosis Note [id number] [facility] [address] [place] [address] 12/29/2020 12:30:35 12/29/2020 15:15:48 [id number] [address] [address] [place] [address] 12/08/2021 09:11:52 12/08/2021 12:32:54 [id number] [address] [address] [place] [address] 12/21/2020 08:18:42 12/21/2020 11:10:43 [id number] LEIA Mcginnis [facility] [address] [place] [address] 03/24/2022 11:16:39 03/24/2022 16:51:09 Streptococcal sore throat 01752725 J02.0 [id number] Dano Salas MD [facility] [address] [place] [address] 09/18/2022 15:54:57 09/18/2022 17:37:16 Pain of right ankle joint [id number] M25.571 Your x-ray will be reviewed by a radiologis t. You will be notified of any discrepanc ies between findings discussed at your visit today and the radiology interpreta tion. Sprain of right ankle 11 [id number] S93.401A Health Concerns Section Related Observation LastModified by Organization Detai ls LastModified Time None Recorded Concern Status LastModified by Organization Details LastModified Time None Recorded Advance Directives Directive None Recorded Payers Insurance Date Sequence Insurance Name Policy Number Policy Saul Covered Member ID Saul Member ID Guarantor Name 09/18/2022 1 [facility] [employer] - TOGETHER (MEDICAID HMO) [id number] Estebanlyseric Lawrence You [id number] 1 Ahlysea You Notes Date Note Type Note Provider Name and Address Organization Details Recorded Time 2 text/html Sore throatReported by PatientSore ThroatFor associated symptoms, patient reportssore throatandcoughing. For source of patient information, patient reportsinformation obtained from patientandpatient arrived at urgent care ambulatory. For location, patient reportsthroat. For severity, patient reportsmoderate. For quality, patient reportshurts to swallow. For onset/timing, patient reports3 days. LEIA Mcginnis [address] [facility] [address], [place], [address], PA - [facility] 03/24/2022 16:50:10 3 text/html Foot/Ankle UCReported by PatientHPIFor associated symptoms, patient reportsswellingbut reportsno weakness,no numbness,no tingling,no redness,no warmth, andno ecchymosis. For source of patient information, patient reportsinformation obtained from patientandpatient arrived at urgent care ambulatory. For location, patient reportsrightandlateral. For problem, patient reportsinjury. For severity, patient reportsmoderate. For duration, patient reports1 days. For context, patient reportsfall. For aggravating factors, patient reportsstandingandjoao ng. For previous treatment, patient reportsnone. For prior imaging, patient reportsnone. Dano Salas MD [address] [place], [address], [place] - [facility] 09/18/2022 19:57:46 OBGyn Episode No OBEpisode recorded.
[2025-01-11 15:53] LABS: Appearance Urine Clear; Glucose Urine UA Negative (Negative); PH 7.0 (5.0-9.0); Specific Gravity - Urine 1.020 (1.005-1.025); UMIC TRIGGER UACC YES
[2025-01-11 15:56] LABS: UPreg QC Valid YES
[2025-01-11 16:20] LABS: UACC Culture Trigger YES
[2025-01-11] MEDS: Lidocaine 4 % Patch ADH..PATCH 1 PATCH TRANSDERMA (16:38)
[2025-01-11 16:44] VITALS: BP 122/71; PULSE 109; RESP 16; TEMP 36.1; O2SAT 98
== END 2025-01-11 16:45 | disposition home or self-care (01) ==
PROVIDERS: Registered Nurse Emergency; Emergency Provider Student in an Organized Health Care Education/Training Program
DX: N39.0 Urinary tract infection, site not specified (principal); S30.0XXA Contusion of lower back and pelvis, initial encounter; W10.9XXA Fall (on) (from) unspecified stairs and steps, initial encounter; Y93.9 Activity, unspecified; Y92.9 Unspecified place or not applicable; M53.3 Sacrococcygeal disorders, not elsewhere classified
CPT/HCPCS: 81001; 81025; 87086; 99283; 99284

== ENCOUNTER 2025-03-04 10:45 | Outpatient (RCR) | payer OTHER, SELFPAY ==
--- NOTE | 2025-02-17 12:56 | PC.ADMIT ---
Patient is a 24 year old single female who was referred to [facility] by [facility] where patient was admitted from 01/21-02/05/25 secondary to increased alcohol and cocaine use. Patient stated she was drinking 1-2 sleeves of alcohol and using cocaine two to three days a week. Last use 01/14/25. Patient denied any history of withdrawal sxs. Patient reports she lost her job and is currently unemployed. Currently living with uncle and aunt. Patient wants to work on continued sobriety along with depression and anxiety sxs. Patient reports many losses in her life including both her parents. Patient is alert and oriented x4. She is calm and cooperative. Thoughts are clear and logical. She presented with depressed mood and affect. She denied SI, no HI. She was given a copy of her safety plan if needed. She reports attending substance use groups on evenings and is planning on attending online morning meetings prior to coming to [facility] for more support. Medications updated with patient and patient's pharmacy. BP 88/62 P 68. Patient encouraged to increase fluid intake. Medication education provided. Patient denied any sxs of dizziness or lightheadedness.
[2025-02-17 13:06] VITALS: BP 88/62; PULSE 68
--- NOTE | 2025-02-18 20:55 | P.HPPSP_ITS ---
HPI Date of Service: 02/17/25 Chief Complaint: MDD,AUD Sources of Information: patient interviewed, chart reviewed and crisis/core team assessment reviewed HPI Narrative: This is the 1st [facility] admission for this 24-year-old female with history of depression, anxiety, PTSD, AUD who is being referred from [facility] following a 3-week admission for withdrawal management for worsening alcohol use and cocaine use. Other stressors include job loss due to attendance/problems related with addiction, and other unmanaged mental health problems. I was not the same person...a lot of things started to decline . She reports struggling with lots of mood swings, anxiety, poor impulse control, unresolved trauma. Cocaine cravings continue to be strong, alcohol cravings not so much . She is currently on medication but says she is not sure how well these are working for her, some days I am depressed some days are okay . Anxiety seems to be better with the BuSpar which was more recently added to her Lexapro. Sleep is poor. She is also on prazosin for nightmares and PTSD. Today overall is anxious, she has a history of self-harming remotely denies any thoughts of harming self or others denies any SI. She is not picked up since discharge. She lives at home with her uncle and his and cousin. She last worked in May. Past Psychiatric History: Detox/rehab x1 to inpatient [facility] in 12/2024 No prior psych IPL[facility], PHP, or which she some respite admissions SA: denies SIB: remote cutting as a teen Aggression or antisocial behaviors: denies Developmental hx of speech delays and possible LD, ADHD (repeated 10th grade) Psychiatrist: Therapist: PCP: Previous trials: trazodone (at program, was helpful) CURRENT MEDICATIONS: Lexapro 10 mg qd Buspar 65 mg/d split QID as 25mg/10mg/15mg/15mg prazosin 2 mg qhs [facility] Medical History (Updated 04/03/25 @ 09:23 by Susan Wong MD) Femur fracture Clavicle fracture Narrative: Seizures: denies Concussions/TBI: denies Nulligravid G0 LMP: none since Nexplanon Ht: 5'1 Wt: 150 lbs ALL: NKDA Family History: Mother with addiction/IGOR, OUD Meds/Allergies Allergies Allergies Allergy/AdvReac Type Severity Reaction Status Date / Time No Known Allergies (No Known Allergy Verified 01/11/25 12:05 Allergies*) Mental Status Exam Mental Status Exam Narrative: Alert, oriented, in no acute distress. Calm, cooperative, engaged. No psychomotor agitation or neurovegetative retardation. Eye contact maintained. Mood anxious, depressed, affect constricted. Speech normal. Thought process linear, coherent. Thought content related to stressors, +cravings, transient helplessness/hopelessness, but future-oriented, denies SI or HI. No paranoia or delusional content elicited. No evidence of psychosis. Insight and judgment - fair but adequate. Assessment & Plan Assessment & Plan (1) Alcohol use disorder: Status: Acute Code(s): F10.90 - Alcohol use, unspecified, uncomplicated (2) Cocaine use disorder: Status: Acute Code(s): F14.90 - Cocaine use, unspecified, uncomplicated (3) DENITA (generalized anxiety disorder): Status: Acute Code(s): F41.1 - Generalized anxiety disorder (4) PTSD (post-traumatic stress disorder): Status: Acute Code(s): F43.10 - Post-traumatic stress disorder, unspecified (5) Depression: Status: Acute Code(s): F32.A - Depression, unspecified (6) Learning disability: Status: Acute Code(s): F81.9 - Developmental disorder of scholastic skills, unspecified Plan Admit to [facility] VS reviewed on admission: afebrile, BP 88/62;?68 bpm reorder Buspar as 30 mg BID (patient may split to 15 mg QID if preferred) start trazodone 50 mg qhs prn sleep will order prazosin as 1 mg caps, and may take 1-2 mg for better tolerance continue Lexapro 10 mg qd the teachers may consider naltrexone (etoh) or baclofen (cocaine) or amantadine (cocaine, adhd) for cravings Routine lab work as indicated EKG, routine for baseline QTc for medication considerations as indicated UDS as indicated [facility] reviewed Continue to monitor as per protocol Patient educated on: diagnosis, medication risk/benefits and substance abuse Informed Consent: understands Reason for continued partial hosp. stay Substantial Risk for: inability to function, rapid decompensation and med/psych decompensation Certification I certify that partial hospital treatment is medically necessary due to the symptoms and problems resulting from the patient's mental illness and the failure to treat the patient at the partial hospital level of care would likely result in the patient requiring inpatient psychiatric care which could not be prevented at a less intensive level of care. Time Spent With Patient Time: Total time managing care of this patient today __90__ minutes.
--- NOTE | 2025-02-23 14:00 | HO.PHP ---
PHP staff member placed a referral for OP therapy and med management through [facility]. PHP staff member is waiting on a scheduled appointment date and time.
[2025-02-25 15:19] LABS: Cannabinoid Screen Urine POSITIVE (Not Detect)
--- NOTE | 2025-02-26 15:27 | HO.PHP ---
Clients case was opened and reviewed in teams.
--- NOTE | 2025-02-27 15:57 | P.PNPSP_ITS ---
Subjective Subjective Date of Service: 02/27/25 Reason For Visit: MDD,AUD Interim History: MOod has been more stable. Sleep still disturbed, waking during the night, some nightmares. But attributes this to legs that are so restless . Has no previous dx of RLS. Buspar (continues to take as 17/01/15) has been helpful for anxiety and feels that when her anxiety is lower, then the RLS is less problematic. She falls asleep easily but then wakes like within an hour later. She takes 3rd dose of Buspar at bedtime, and I suggest moving the dose back to AM/noon/5pm in case this is interfering with sleep. She is also taking Lexapro at night and could consider try splitting that dose AM and PM. If sleeping better she could move the Lexapro to the AM. She endorses cocaine cravings to the max but says she is not really haivng any alcohol cravings and is open to stratingsomething for the cocaine cravings. She denies any cocaine use is the past 6 weeks. She also inquires about treatment for ADHD sx and anxiety, and we discuss options. Will plan to start amantadine to target both ADHD and cocaine cravings, possibly motor restlessness but will observe) and guanfacine for ADHD and anxiety. Medication Compliance: Yes Side effects from medications: No Attending Groups: Yes Review of Systems Acute medical concerns: No Mental Status Exam Mental Status Exam Narrative: Alert, oriented, in no acute distress. Calm, cooperative, engaged. No psychomotor agitation or neurovegetative retardation. Eye contact maintained. Mood anxious, less depressed, affect brighter. Speech normal. Thought process linear, coherent. Thought content related to stressors, ++cravings, future- oriented, denies SI or HI. No paranoia or delusional content elicited. No evidence of psychosis. Insight and judgment - fair but adequate. Assessment & Plan Assessment & Plan (1) Alcohol use disorder: Status: Acute Code(s): F10.90 - Alcohol use, unspecified, uncomplicated (2) Cocaine use disorder: Status: Acute Code(s): F14.90 - Cocaine use, unspecified, uncomplicated (3) DENITA (generalized anxiety disorder): Status: Acute Code(s): F41.1 - Generalized anxiety disorder (4) PTSD (post-traumatic stress disorder): Status: Acute Code(s): F43.10 - Post-traumatic stress disorder, unspecified (5) Depression: Status: Acute Code(s): F32.A - Depression, unspecified (6) Learning disability: Status: Acute Code(s): F81.9 - Developmental disorder of scholastic skills, unspecified Plan continue PHP start guanfacine ER 1 mg qhs start amantadine 50-100 mg qd (cocaine cravings, adhd) contiue Buspar 30 mg BID (patient may split to 15 mg QID if preferred) start trazodone 50 mg qhs prn sleep continue prazosin 1-2 mg qhs continue Lexapro 10 mg qd Routine lab work as indicated EKG, routine for baseline QTc for medication considerations as indicated UDS as indicated VS reviewed on admission: afebrile, BP 88/62;?68 bpm Continue to monitor Patient educated on: diagnosis, medication risk/benefits and substance abuse Informed Consent: understands Reason for contiued partial hosp. stay Substantial Risk for: rapid decompensation and med/psych decompensation Certification I certify that partial hospital treatment is medically necessary due to the symptoms and problems resulting from the patient's mental illness and the failure to treat the patient at the partial hospital level of care would likely result in the patient requiring inpatient psychiatric care which could not be prevented at a less intensive level of care. Total time managing care of this patient today __40__ minutes. Discharge Plan Discharge Attending provider: Susan Wong Additional Instructions: Jeffry has a med provider appointment scheduled for March 10, 2025 at 9 AM via telehealth with Ester Cooper. Phone number: and Fax is: . Jeffry has a therapy appointment on March 09, 2025 at 9 AM via telehealth with Elle Zayas. Phone number is .Fax number is Medications: New buspirone 30 mg tablet 30 mg PO BID 15 Days Qty: 30 0RF Rx Instructions: take as directed trazodone 50 mg tablet 50 mg PO BEDTIME PRN (Reason: sleep) Qty: 20 0RF amantadine HCl 100 mg tablet 100 mg PO BEDTIME Qty: 14 0RF guanfacine 1 mg tablet extended release 24 hr 1 mg PO QAM Qty: 14 0RF Rx Instructions: take around 10 am Continued escitalopram oxalate 10 mg tablet 10 mg PO BEDTIME Qty: 30 0RF Changed prazosin 1 mg capsule 1 - 2 mg PO BEDTIME Qty: 30 0RF Discontinued buspirone 10 mg tablet See Rx Instructions .ROUTE .COMPLEX Rx Instructions: Take 1 tablet oral twice a day at 8:00 am and 2:00 pm, and take 1 1/2 tablet oral once a day at 8:00 pm buspirone 15 mg tablet See Rx Instructions .ROUTE .COMPLEX Rx Instructions: 1 tablet oral bid - () at 8:00 am and 5:00 pm Stand Alone Forms: Patient Portal Discharge page Patient Education: Cocaine Use Disorder (DC), PTSD (Post Traumatic Stress Disorder) (DC), Alcohol Use Disorder (DC) Print Language: Burmese
--- NOTE | 2025-03-04 11:56 | PC.NURSE ---
It appears that Jeffry's [place] [facility] Her and I looked up her [place] online and were [place] was one provider listed in [place], that was [place] close to her home, which she considered however they are not accepting any new patient's at this time. Jeffry is planning on getting in touch with Crystal from [facility] whom she has spoken with previously to make an appointment to talk about changing her insurance so she is able to obtain a PCP in this area.
--- NOTE | 2025-03-05 15:47 | HO.PHP ---
PHP admin, Lalita, informed the team that joaquim will not be in attendance to program today and will be here tomorrow.
== END 2025-03-04 23:59 | disposition home or self-care (01) ==
LOC: HO.PHPA 10:45
PROVIDERS: Visit Provider Psychiatry & Neurology Psychiatry
DX: F10.90 Alcohol use, unspecified, uncomplicated (principal); F14.90 Cocaine use, unspecified, uncomplicated; F41.1 Generalized anxiety disorder; F43.10 Post-traumatic stress disorder, unspecified; F32.A Depression, unspecified; F81.9 Developmental disorder of scholastic skills, unspecified; Z79.899 Other long term (current) drug therapy
CPT/HCPCS: 80307; 90791; 90853

== ENCOUNTER → 2025-03-04 10:45 | Outpatient (BNV) | payer OTHER, SELFPAY | PROVIDERS: Visit Provider Psychiatry & Neurology Psychiatry | DX: F10.90 Alcohol use, unspecified, uncomplicated (principal); F14.90 Cocaine use, unspecified, uncomplicated; F41.1 Generalized anxiety disorder; F43.10 Post-traumatic stress disorder, unspecified; F32.A Depression, unspecified; F81.9 Developmental disorder of scholastic skills, unspecified | CPT/HCPCS: 90792 ==